=== PATIENT | female | born 1975 | race Asian ===

== ENCOUNTER 2024-05-13 13:02 | Emergency (ER) | payer OTHER, SELFPAY ==
[2024-05-13 13:11] VITALS: BP 126/74
[2024-05-13 13:55] LABS: Hematocrit 42.9 % (37.0-47.0); Hemoglobin 14.4 g/dL (12.0-16.0); Mean Corp Hgb Conc. 33.6 g/dL (33.0-37.0); Mean Corpuscular Hgb 27.3 pg (27.0-31.0); Mean Corpuscular Volume 81.4 fL (81.0-99.0); Mean Platelet Volume 9.5 fL (7.4-10.4); Platelet Count 282 10^3/uL (130-400); Red Blood Cell Count 5.27 10^6/uL (4.20-5.40); Red Cell Dist. Width 11.8 % (11.5-14.5); White Blood Cell Count 4.1 10^3/uL (4.8-10.8)
[2024-05-13 14:13] LABS: % Basophils 0.2 % (0-2); % Eosinophils 0.2 % (0-6); % Immature Granulocytes 0.5 % (0-0.5); % Monocytes 14.3 % (1.7-9.3); % Neutrophils 62.8 % (42.2-75.2); Absolute Lymphocytes 0.9 10^3/uL (1.2-3.4); Absolute Monocytes 0.6 10^3/uL (0.1-0.6); Absolute Neutrophils 2.6 10^3/uL (1.4-6.5); Nucleated Red Blood Cells % 0 %
[2024-05-13 14:15] LABS: ALT (SGPT) 51 U/L (0-35); AST (SGOT) 36 U/L (14-36); Albumin 4.7 g/dl (3.5-5.0); Alkaline Phosphatase 111 U/L (38-126); Blood Urea Nitrogen 16 mg/dl (7-17); Calcium 9.3 mg/dl (8.4-10.2); Carbon Dioxide 29 mmol/L (22-30); Chloride 98 mmol/L (98-107); Glucose 279 mg/dl (70-99); Potassium 4.2 mmol/L (3.5-5.1); Sodium 137 mmol/L (135-145); Total Bilirubin 0.8 mg/dl (0.2-1.3); Total Protein 7.6 g/dl (6.3-8.2); eGFR > 60.00
[2024-05-13 17:16] LABS: D-Dimer < 0.27 ug/mlFEU (0.00-0.50)
--- NOTE | 2024-05-13 17:33 | ED.GENMED ---
History of Present Illness
General
Chief Complaint: Breathing Problem
Time Seen by Provider: 05/13/24 16:37
History of Present Illness
History of Present Illness:
48-year-old female presents the emergency department for evaluation of wheezing and shortness of breath. She developed flulike symptoms 5 days ago, tested positive for the flu 2 days ago. She was initially started on cefadroxil and steroids by
urgent care however discontinued the cefadroxil after the positive flu test. Denies any fevers at this time. She is been using her home nebulizers without significant improvement in symptoms.
Review of Systems
Review of Systems
Allergies reviewed?: Yes
All Other Systems: ROS reviewed and negative except as documented in HPI and ROS
Phy Exam
Physical Exam
Physical Exam:
GEN: Well appearing, NAD, WDWN
HEENT: Oral mucosa moist, no scleral icterus
Cardiac: Regular rate and rhythm, no murmurs
Lung: No respiratory distress, no tachypnea, lungs clear to auscultation
MSK: No gross deformity or injuries
Skin: Good color, no pallor or jaundice, no rashes
Neuro: AO x3, moves all extremities freely
Psych: Calm, cooperative
Scores
Heart Failure Risk
Heart Failure Risk Score: Not Applicable
Course
Orders/Labs/Results
Orders:
Orders
05/13/24 13:15
CXR2 [CR Chest - 2 Views ] Urgent
Comment:
Reason For Exam: sob
05/13/24 13:24
CBC/With Diff [Complete Blood Count/With Diff] Urgent
Comprehensive Metabolic Panel Urgent
05/13/24 16:44
D-Dimer Urgent
05/13/24 17:33
Ipratropium/Albuterol Sulfate [Duoneb] 3 ml INH R NOW STA
Abnormal Lab Results
05/13/24
13:24
WBC 4.1 L 10^3/uL
(4.8-10.8)
Absolute Lymphs (auto) 0.9 L 10^3/uL
(1.2-3.4)
Monocytes % 14.3 H %
(1.7-9.3)
Glucose 279 H mg/dl
(70-99)
ALT 51 H U/L
(0-35)
05/13/24 13:24
05/13/24 13:24
Vital Signs
Initial and Last Documented VS:
Initial Vital Signs
Temp Pulse Resp BP Pulse Ox
98.8 F 77 16 126/74 96
05/13/24 13:11 05/13/24 13:11 05/13/24 13:11 05/13/24 13:11 05/13/24 13:11
Last Documented Vital Signs
Temp Pulse Resp BP Pulse Ox
98.8 F 77 16 126/74 96
05/13/24 13:11 05/13/24 13:11 05/13/24 13:11 05/13/24 13:11 05/13/24 13:11
MDM/Problems Addressed
MDM/Problems Addressed:
Workup is reassuring, particularly negative D-dimer rules out PE. She has no wheezing at this time. Given that she is underlying asthma we will treat with nebulized budesonide for a 10 to 14-day course
*Critical Care Note
Total Time (30-74mins, 75-104mins- exclusive of procedures): Not Applicable
ED Attending Note
-
Portions of this chart may have been created with voice recognition software.� Occasional wrong word or��sound alike� substitutions may have occurred due to the inherent limitations of voice recognition software.
Discharge Plan
Departure
Patient Disposition: Home (Routine Discharge)
Date of Disposition: 05/13/24
Time of Disposition: 17:33
Patient with high blood pressure during this ER visit?: No
Discharge Problem:
Shortness of breath, Influenza
Instructions: Shortness of Breath (Dyspnea) (DC)
Prescriptions:
New
budesonide 0.25 mg/2 mL suspension for nebulization
0.25 mg inhalation BID Qty: 60 0RF
Referrals:
NONE,* [Family Provider] -
Activity Restrictions/Additional Instructions:
Use the nebulizer every 12 hours for 10-14 days
Interventions
Interventions:
*Risk Screen - Suicide Last Done: 05/13/24 13:11
*Neglect/Abuse Screening Last Done: 05/13/24 13:11
*Nursing Disposition Last Done: 05/13/24 18:22
ED- Cardiac Assessment Last Done: 05/13/24 16:50
ED- Pulmonary Assessment Last Done: 05/13/24 16:50
Discharge Date and Time
Discharge Date/Time: 05/13/24 18:22
Print Language: ROMANSH
[2024-05-13] MEDS: DUONEB 3 ML INH (17:48)
== END 2024-05-13 18:22 | disposition home or self-care (01) ==
LOC: EMR 13:02
PROVIDERS: Physician Assistant; Student in an Organized Health Care Education/Training Program; EMERGENCY PHYSICIAN Emergency Medicine
DX: J11.1 Influenza due to unidentified influenza virus with other respiratory manifestations (principal); R06.02 Shortness of breath; J45.909 Unspecified asthma, uncomplicated
CPT/HCPCS: 99284; 94640; 71046; 80053; 85025; 85379

== ENCOUNTER → 2024-12-06 17:57 | Outpatient (REF) | payer OTHER, SELFPAY | LOC: RAD 17:57 | PROVIDERS: ATTENDING PHYSICIAN Nurse Practitioner Adult Health; OTHER PHYSICIAN Internal Medicine Critical Care Medicine | DX: R06.02 Shortness of breath (principal) | CPT/HCPCS: 71046 ==